=== PATIENT | female | born 1980 ===

== ENCOUNTER 2017-04-06 16:20 | Emergency (ER) | payer OTHER, MEDICAID ==
[2017-04-06 16:21] VITALS: BMI 31.8
[2017-04-06 16:29] VITALS: BP 117/83; PULSE 77; RESP 16; TEMP 98.7; O2SAT 97
--- NOTE | 2017-04-06 16:54 | ED PDOC ---
Arrival/HPI - General Chief Complaint: Palpitations Time Seen by Provider: 04/06/17 16:25 Historian: Patient - History of Present Illness Narrative History of Present Illness (Text): 04/06/17 16:51 This 37 yo female with pmh vertigo, presents to this ED c/o anxious, palpitation , feeling fatigue x 3 moths. Patient stated symptoms has been exacerbating x 1 week. Patient feels overwhelmed, and sometimes she does not feels like leaving her house. Patient admits having problem at work with her boss. Patient stated sometimes ideas of hurting herself has crossed her mind multiple times, and especially within last 2 days. 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 Patient noted lack of sleep. She is taking Meclizine for vertigo as needed. Patient denies hallucination, paranoia , HI, alcohol abuse, sob, cp, or dizziness. Patient admits Cannabis daily use. Time/Duration: Other (see HPI) Context: Home Past Medical History - Provider Review Nursing Documentation Reviewed: Yes - Cardiac Hx Heart Murmur: Yes - Pulmonary Hx Respiratory Disorders: No - Neurological Hx Vertigo: Yes - HEENT Hx HEENT Disorder: No - Renal Hx Renal Disorder: No - Endocrine/Metabolic Hx Endocrine Disorders: No - Hematological/Oncological Hx Blood Disorders: No - Integumentary Hx Dermatological Disorder: No - Musculoskeletal/Rheumatological Hx Musculoskeletal Disorders: No - Gastrointestinal Hx Gastrointestinal Disorders: No - Genitourinary/Gynecological Hx Genitourinary Disorders: No - Psychiatric Hx Psychophysiologic Disorder: Yes Hx Depression: Yes Hx Emotional Abuse: No Hx Physical Abuse: No Hx Substance Use: Yes (marijuana) - Suicidal Assessment Feels Threatened In Home Enviroment: No Family/Social History - Physician Review Nursing Documentation Reviewed: Yes Family/Social History: No Known Family HX Smoking Status: Never Smoked Hx Alcohol Use: Yes Hx Substance Use: Yes (marijuana) Allergies/Home Meds Allergies/Adverse Reactions: Allergies No Known Allergies Allergy (Verified 04/06/17 16:23) Review of Systems - Review of Systems Constitutional: Normal. absent: Fatigue, Weight Change, Fevers Eyes: Normal ENT: Normal Respiratory: Normal. absent: SOB, Cough Cardiovascular: Palpitations. absent: Chest Pain, Edema, Calf Pain, MULLER Gastrointestinal: Normal. absent: Abdominal Pain, Nausea, Vomiting Genitourinary Female: Normal Musculoskeletal: Normal Skin: Normal Neurological: Normal Endocrine: Normal Hemo/Lymphatic: Normal Psychiatric: Anxiety, Suicidal Ideation Physical Exam Vital Signs Temp Pulse Resp BP Pulse Ox 04/06/17 16:27 98.7 F 77 16 117/83 97 Temperature: Afebrile Blood Pressure: Normal Pulse: Regular Respiratory Rate: Normal Appearance: Positive for: Well-Appearing, Non-Toxic, Comfortable Pain Distress: None Mental Status: Positive for: Alert and Oriented X 3 - Systems Exam Head: Present: Atraumatic, Normocephalic Pupils: Present: PERRL Extroacular Muscles: Present: EOMI Conjunctiva: Present: Normal Mouth: Present: Moist Mucous Membranes Neck: Present: Normal Range of Motion Respiratory/Chest: Present: Clear to Auscultation, Good Air Exchange. No: Respiratory Distress, Accessory Muscle Use Cardiovascular: Present: Regular Rate and Rhythm, Normal S1, S2. No: Murmurs Abdomen: Present: Normal Bowel Sounds. No: Tenderness, Distention, Peritoneal Signs Back: Present: Normal Inspection Upper Extremity: Present: Normal Inspection. No: Cyanosis, Edema Lower Extremity: Present: Normal Inspection. No: Edema Neurological: Present: GCS=15, CN II-XII Intact, Speech Normal Skin: Present: Warm, Dry, Normal Color. No: Rashes Psychiatric: Present: Alert, Oriented x 3, Anxious, Suicidal Ideation. No: Delusional, Hallucinations, Intoxicated Medical Decision Making ED Course and Treatment: 04/06/17 19:51 PES screener spoke with patient. PES screener told me patient will be discharged home. Dx. anxiety. Patient was given information for outpatient clinic. Re-evaluation Time: 19:52 Reassessment Condition: Re-examined, Improved - Lab Interpretations Lab Results: 04/06/17 16:50 04/06/17 16:50 Lab Results 04/06/17 17:30: Urine Opiates Screen Negative, Urine Methadone Screen Negative, Ur Barbiturates Screen Negative, Ur Phencyclidine Scrn Negative, Ur Amphetamines Screen Negative, U Benzodiazepines Scrn Negative, U Oth Cocaine Metabols Negative, U Cannabinoids Screen Positive H 04/06/17 17:30: Urine Color Yellow, Urine Appearance Clear, Urine pH 6.0, Ur Specific [place] >= 1.030, Urine Protein Negative, Urine Glucose (UA) Negative, Urine Ketones Negative, Urine Blood Trace-lysed H, Urine Nitrate Negative, Urine Bilirubin Negative, Urine Urobilinogen 0.2, Ur Leukocyte Esterase Negative , Urine RBC 0 - 2, Urine WBC 0 - 2, Ur Epithelial Cells 1 - 3, Urine Bacteria Small, Urine HCG, Qual Negative 04/06/17 16:50: Alcohol, Quantitative < 10 04/06/17 16:50: Salicylates < 1 L, Acetaminophen < 10.0 L 04/06/17 16:50: Sodium 139, Potassium 3.6, Chloride 102, Carbon Dioxide 29, Anion Gap 12, BUN 12, Creatinine 0.7, Est GFR ( Amer) > 60, Est GFR (Non- Af Amer) > 60, Random Glucose 83, Calcium 9.3, Total Bilirubin 0.5, AST 26, ALT 37, Alkaline Phosphatase 48, Total Protein 7.6, Albumin 4.1, Globulin 3.5, Albumin/Globulin Ratio 1.2 04/06/17 16:50: WBC 11.6 H, RBC 4.54, Hgb 14.2, Hct 41.3, MCV 91.0, MCH 31.3, MCHC 34.4, RDW 13.2, Plt Count 325, MPV 10.0, Gran % 61.0, Lymph % (Auto) 30.6, [place] % (Auto) 5.5, Eos % (Auto) 2.5, Baso % (Auto) 0.4, Gran # 7.04 H, Lymph # 3.5 H, [place] # 0.6, Eos # 0.3, Baso # 0.05 I have reviewed the lab results: Yes Interpretation: No clinic. lab abnormalty ((+) cannabinoid) - RAD Interpretation Narrative RAD Interpretations (Text): CXR: NAD Radiology Orders: 04/06/17 16:50 CHEST PORTABLE [RAD] Stat Disposition/Present on Arrival - Present on Arrival Any Indicators Present on Arrival: No History of DVT/PE: No History of Uncontrolled Diabetes: No Urinary Catheter: No History of Decub. Ulcer: No History Surgical Site Infection Following: None - Disposition Have Diagnosis and Disposition been Completed?: Yes Diagnosis: Anxiety, Depression Disposition: HOME/ ROUTINE Disposition Time: 19:53 Patient Plan: Discharge Condition: GOOD Discharge Instructions (ExitCare): Depression (ED) Additional Instructions: Call clinic as recommended by Psychiatric Screener. Return to emergency if symptoms worsen. . Referrals: [facility], [Non-Staff] - Follow up with primary [facility] [Outside] - Follow up with primary [facility] [Outside] - Follow up with primary [facility] [Outside] - Follow up with primary Forms: WORK NOTE
[2017-04-06 16:57] LABS: ADD MANUAL DIFF? NO
[2017-04-06 17:19] LABS: ALB/GLOB RATIO 1.2 (1.1-1.8); ALKALINE PHOSPHATASE 48 U/L (38-133); ALT/SGPT 37 U/L (7-56); AST/SGOT 26 U/L (15-39); BASO # 0.05 K/mm3 (0.0-2.0); BASO % 0.4 % (0.0-3.0); BILIRUBIN,TOTAL 0.5 mg/dL (0.2-1.3); BLOOD UREA NITROGEN 12 mg/dL (7-21); CALCIUM 9.3 mg/dL (8.4-10.5); CARBON DIOXIDE 29 mmol/L (21-33); CHLORIDE 102 mmol/L (95-110); EOS # 0.3 (0.0-0.7); EOS % 2.5 % (1.5-5.0); GFR AFRICAN-AMERICAN > 60; GLUCOSE,RANDOM 83 mg/dL (70-110); GRAN # 7.04 (1.4-6.5); HEMATOCRIT 41.3 % (36.0-48.0); LYMPH # 3.5 (1.2-3.4); LYMPH % 30.6 % (22.0-35.0); MEAN CORPUSCULAR HEMOGLOBIN 31.3 pg (25.0-35.0); MEAN CORPUSCULAR HGB CONC 34.4 g/dl (31.0-37.0); MONO # 0.6 (0.1-0.6); MONO % 5.5 % (1.0-6.0); PLATELET COUNT 325 10^3/uL (120.0-450.0); POTASSIUM 3.6 mmol/L (3.6-5.0); RED CELL DISTRIBUTION WIDTH 13.2 % (11.5-14.5); SODIUM 139 mmol/L (132-148); TOTAL PROTEIN 7.6 g/dL (5.8-8.3); WHITE BLOOD COUNT 11.6 10^3/ul (4.5-11.0)
[2017-04-06 17:54] LABS: URINE BILIRUBIN NEGATIVE (NEGATIVE); URINE BLOOD TRACE-LYSED (NEGATIVE); URINE GLUCOSE (UA) NEGATIVE (NEGATIVE); URINE KETONE NEGATIVE (NEGATIVE); URINE LEUKOCYTE ESTERASE NEGATIVE Leu/uL (NEGATIVE); URINE PROTEIN NEGATIVE mg/dL (<30 mg/dL); URINE UROBILINOGEN 0.2 E.U./dL (<1 E.U./dL)
[2017-04-06 17:59] LABS: URINE APPEARANCE CLEAR (CLEAR); URINE COLOR YELLOW (YELLOW)
[2017-04-06 18:20] LABS: URINE RBC 0 - 2 /hpf (0-2); URINE WBC 0 - 2 /hpf (0-6)
[2017-04-06 18:21] LABS: URINE BACTERIA SMALL (NEG)
--- NOTE | 2017-04-07 08:24 | RAD ---
HISTORY: PES eval COMPARISON: 04/09/2013 FINDINGS: LUNGS: No active pulmonary disease. PLEURA: No significant pleural effusion identified, no pneumothorax apparent. CARDIOVASCULAR: Normal. OSSEOUS STRUCTURES: No significant abnormalities. VISUALIZED UPPER ABDOMEN: Normal. OTHER FINDINGS: None. IMPRESSION: No active disease.
--- NOTE | 2017-04-07 10:22 | CARD ---
APPROVED REPORT EKG Measurement Heart [id number] <Conclusion> RSR PRWP NSSTW changes
== END 2017-04-06 20:03 | disposition home or self-care (01) ==
LOC: ED 16:20
DX: F41.9 Anxiety disorder, unspecified (principal); F32.9 Major depressive disorder, single episode, unspecified